=== PATIENT | female | born 1970 | race Caucasian/White ===

== ENCOUNTER 2019-10-22 11:36 | Inpatient (IN) | payer OTHER ==
[~2019-10-22] VITALS: Ht 157.5 cm; Wt 42.2 kg
[2019-10-22] MEDS ORDERED: IV NS 0.9% 1,000 ML BAG IV ONE ×2 (12:30→14:00)
[2019-10-22] MEDS ORDERED: ALBUTEROL FS 2.5 MG/3 ML VIAL.NEB NEB ONE (12:30)
[2019-10-22] MEDS ORDERED: predniSONE 20 MG TABLET ONE (12:49)
[2019-10-22 12:51] LABS: BASOPHILS # (AUTO) 0.1 /CMM (0.0-0.2); BASOPHILS % (AUTO) 0.6 % (0.0-2.0); EOSINOPHILS % (AUTO) 0.6 % (0.0-6.0); HEMATOCRIT 41 % (33-45); HEMOGLOBIN 13.5 g/dL (11.5-14.8); LYMPHOCYTES # (AUTO) 2.7 /CMM (0.8-4.8); LYMPHOCYTES % (AUTO) 30.9 % (20.0-44.0); MEAN CORPUSCULAR HGB CONC 33 g/dl (31.0-36.0); MEAN CORPUSCULAR VOLUME 83 fL (82-100); MONOCYTES # (AUTO) 0.9 /CMM (0.1-1.30); NEUTROPHILS # (AUTO) 5.1 /CMM (1.8-8.9); NEUTROPHILS % (AUTO) 57.9 % (43.0-81.0); PLATELET COUNT (AUTO) 145 /CMM (150-450); RED BLOOD CELL COUNT(AUTO) 4.97 MIL/uL (4.0-5.2); WHITE BLOOD COUNT (AUTO) 8.7 K/uL (4.3-11.0)
[2019-10-22] MEDS ORDERED: ALBUTEROL FS 2.5 MG/3 ML VIAL.NEB ONE (12:52)
[2019-10-22] MEDS ORDERED: predniSONE 50 MG TABLET PO ONE (13:00)
[2019-10-22 13:04] LABS: ALANINE AMINOTRANSFERASE 88 U/L (12-78); ALBUMIN 3.2 g/dL (3.4-5.0); ALKALINE PHOSPHATASE 344 U/L (46-116); ASPARTATE AMINOTRANSFERASE 75 U/L (15-37); BILIRUBIN,DIRECT 0.2 mg/dL (0.0-0.2); BILIRUBIN,TOTAL 0.3 mg/dL (0.2-1.0); TOTAL PROTEIN, SERUM 7.6 g/dL (6.4-8.2)
[2019-10-22 13:22] LABS: CALCIUM, SERUM 9.3 mg/dL (8.5-10.1); POTASSIUM 3.3 mmol/L (3.5-5.1)
[2019-10-22] MEDS ORDERED: HYDR-4384 PO (13:49)
[2019-10-22] MEDS ORDERED: ALBU1.25 NEB (13:49)
[2019-10-22] MEDS ORDERED: IBUP-1957 PO (13:49)
[2019-10-22] MEDS ORDERED: GLIP5TAB13 PO (13:49)
[2019-10-22] MEDS ORDERED: METF-440 PO (13:49)
[2019-10-22] MEDS ORDERED: HUM10VIA3 SQ (13:49)
[2019-10-22 13:51] LABS: APPEARANCE,URINE CLEAR (CLEAR); BILIRUBIN,URINE NEGATIVE (NEGATIVE); BLOOD, URINE NEGATIVE Ery/uL (NEGATIVE); COLOR,URINE YELLOW (YELLOW); KETONES,URINE NEGATIVE (NEGATIVE); LEUKOCYTE ESTERASE ,URINE NEGATIVE (NEGATIVE); NITRITE, URINE NEGATIVE (NEGATIVE); PROTEIN,URINE NEGATIVE (NEGATIVE); UGLUCOSE >=1000 mg/dL (NEGATIVE); UROBILINOGEN,URINE 0.2 EU/dL (0.2)
[2019-10-22] MEDS ORDERED: POTASSIUM CL. PREMIX PERIPHER. 200 ML ONE (13:51)
[2019-10-22 14:13] LABS: RBC,URINE NONE SEEN /HPF (0-2); WBC,URINE NONE SEEN /HPF (0-3)
[2019-10-22] MEDS: POTASSIUM CL. PREMIX PERIPHER. 50 ML IV SCH ×5 (14:13→17:45)
[2019-10-22 14:14] LABS: BACTERIA,URINE None seen /HPF (None Seen); SQUAMOUS EPITHELIAL CELL,UR Many /HPF (None Seen)
[2019-10-22] MEDS ORDERED: ACETAMINOPHEN 325 MG TABLET PO PRN (15:00)
[2019-10-22] MEDS ORDERED: MAGNESIUM HYDROXIDE 30 ML UDC PO PRN (15:00)
[2019-10-22] MEDS ORDERED: HYDROCODONE/APAP 5/325MG 1 EACH TABLET PO PRN (15:00)
[2019-10-22] MEDS ORDERED: INSULIN REGULAR, HUMAN 100 UNIT/ML 3 ML VIAL IV ONE (15:00)
[2019-10-22] MEDS ORDERED: Z GUARD REMEDY 2 OZ OINT TP PRN (15:00)
[2019-10-22] MEDS ORDERED: MAG HYDROX/AL HYDROX/SIMETH 30 ML UDC PO PRN (15:00)
[2019-10-22] MEDS ORDERED: DEXTROSE 50%-WATER 50 ML DISP.SYRIN IV PRN (15:00)
[2019-10-22 16:00] VITALS: BP 133/78
[2019-10-22 17:27] VITALS: BP 133/78
[2019-10-22] MEDS: METFORMIN 500 MG TABLET PO SCH (17:36)
[2019-10-22] MEDS: BLOOD SUGAR DIAGNOSTIC 1 EACH STRIP IN SCH ×2 (17:40→21:42)
[2019-10-22] MEDS: IV NS 0.9% 1,000 ML IV SCH ×2 (17:40→22:16)
[2019-10-22] MEDS: *INSULIN REGULAR(HUMULIN R)HUM 100 UNIT/ML VIAL SQ PRN ×2 (18:52→22:29)
[2019-10-22 20:00] VITALS: BP 170/86
[2019-10-22] MEDS ORDERED: INSULIN GLARGINE, 100 UNIT/ML CARTRIDGE SQ SCH (22:00)
[2019-10-23 04:00] VITALS: BP 155/85
[2019-10-23] MEDS: IV NS 0.9% 1,000 ML IV SCH ×4 (04:13→23:20)
[2019-10-23 06:55] LABS: BASOPHILS % (AUTO) 0.1 % (0.0-2.0); EOSINOPHILS % (AUTO) 0.1 % (0.0-6.0); HEMATOCRIT 34 % (33-45); HEMOGLOBIN 11.5 g/dL (11.5-14.8); LYMPHOCYTES # (AUTO) 3.3 /CMM (0.8-4.8); LYMPHOCYTES % (AUTO) 23.9 % (20.0-44.0); MEAN CORPUSCULAR HGB CONC 34 g/dl (31.0-36.0); MEAN CORPUSCULAR VOLUME 79 fL (82-100); MONOCYTES # (AUTO) 0.8 /CMM (0.1-1.30); MONOCYTES % (AUTO) 5.9 % (2.0-12.0); NEUTROPHILS # (AUTO) 9.8 /CMM (1.8-8.9); PLATELET COUNT (AUTO) 143 /CMM (150-450); RED BLOOD CELL COUNT(AUTO) 4.28 MIL/uL (4.0-5.2)
[2019-10-23 07:34] LABS: CALCIUM, SERUM 8.9 mg/dL (8.5-10.1); CREATININE 0.8 mg/dL (0.6-1.3); MAGNESIUM 1.3 mg/dL (1.8-2.4); PHOSPHORUS 2.1 mg/dL (2.5-4.9); POTASSIUM 4.2 mmol/L (3.5-5.1)
[2019-10-23] MEDS: BLOOD SUGAR DIAGNOSTIC 1 EACH STRIP IN SCH ×4 (07:46→21:53)
[2019-10-23] MEDS: INSULIN REGULAR, HUMAN 100 UNIT/ML 3 ML VIAL SQ PRN ×2 (07:50→16:42)
[2019-10-23 08:00] VITALS: BP 167/98
[2019-10-23] MEDS: ONDANSETRON HCL/PF 4 MG/2 ML VIAL IVP PRN (08:03)
[2019-10-23] MEDS: METFORMIN 500 MG TABLET PO SCH ×2 (08:03→16:46)
[2019-10-23] MEDS: Magnesium 1GM/D5W 100ML PREMIX 100 ML IV SCH ×4 (10:14→13:46)
[2019-10-23] MEDS ORDERED: K PHOS NEUTRAL 250 MG TABLET PO ONE (11:00)
[2019-10-23 16:00] VITALS: BP 162/80
[2019-10-23 20:00] VITALS: BP 142/77
[2019-10-23] MEDS: *INSULIN REGULAR(HUMULIN R)HUM 100 UNIT/ML VIAL SQ PRN (21:58)
[2019-10-23] MEDS: INSULIN GLARGINE, 100 UNIT/ML CARTRIDGE SQ SCH (21:58)
[2019-10-24] MEDS: BLOOD SUGAR DIAGNOSTIC 1 EACH STRIP IN SCH ×4 (06:36→22:01)
[2019-10-24] MEDS: INSULIN REGULAR, HUMAN 100 UNIT/ML 3 ML VIAL SQ PRN ×3 (06:39→18:56)
[2019-10-24] MEDS: IV NS 0.9% 1,000 ML IV SCH (07:00)
[2019-10-24 07:38] LABS: BASOPHILS % (AUTO) 0.4 % (0.0-2.0); EOSINOPHILS % (AUTO) 0.8 % (0.0-6.0); HEMATOCRIT 38 % (33-45); HEMOGLOBIN 12.6 g/dL (11.5-14.8); LYMPHOCYTES # (AUTO) 3.9 /CMM (0.8-4.8); MEAN CORPUSCULAR HGB CONC 33 g/dl (31.0-36.0); MEAN CORPUSCULAR VOLUME 79 fL (82-100); MONOCYTES # (AUTO) 1.2 /CMM (0.1-1.30); MONOCYTES % (AUTO) 8.5 % (2.0-12.0); NEUTROPHILS # (AUTO) 8.4 /CMM (1.8-8.9); NEUTROPHILS % (AUTO) 61.3 % (43.0-81.0); PLATELET COUNT (AUTO) 154 /CMM (150-450); RED BLOOD CELL COUNT(AUTO) 4.79 MIL/uL (4.0-5.2); WHITE BLOOD COUNT (AUTO) 13.6 K/uL (4.3-11.0)
[2019-10-24 08:00] VITALS: BP 143/91
[2019-10-24 08:08] LABS: CALCIUM, SERUM 8.6 mg/dL (8.5-10.1); CREATININE 0.6 mg/dL (0.6-1.3); MAGNESIUM 1.6 mg/dL (1.8-2.4); POTASSIUM 4.4 mmol/L (3.5-5.1)
[2019-10-24] MEDS: METFORMIN 500 MG TABLET PO SCH ×2 (08:12→16:54)
[2019-10-24] MEDS ORDERED: IV NS 0.9% 1,000 ML IV PRN (09:17)
[2019-10-24] MEDS: Magnesium 1GM/D5W 100ML PREMIX 100 ML IV SCH ×2 (11:42→11:52)
[2019-10-24] MEDS: *INSULIN REGULAR(HUMULIN R)HUM 100 UNIT/ML VIAL SQ PRN ×2 (11:44→22:12)
[2019-10-24] MEDS: LISINOPRIL (10MG) 10 MG TABLET PO SCH (11:46)
[2019-10-24] MEDS: Potassium Phosphate meq 11 MEQ in IV D5W 100 ML IV SCH ×2 (12:37→12:38)
[2019-10-24] MEDS: ENSURE ENLIVE 237 ML LIQUID (VANILLA) PO SCH ×2 (13:00→16:54)
[2019-10-24] MEDS: ONDANSETRON HCL/PF 4 MG/2 ML VIAL IVP PRN (14:47)
[2019-10-24 16:00] VITALS: BP 145/68
[2019-10-24 17:55] VITALS: BP 144/71
[2019-10-24 18:31] VITALS: BP 144/71
[2019-10-24 20:33] VITALS: BP 149/80
[2019-10-24] MEDS: INSULIN GLARGINE, 100 UNIT/ML CARTRIDGE SQ SCH (22:13)
[2019-10-25] MEDS: INSULIN REGULAR, HUMAN 100 UNIT/ML 3 ML VIAL SQ PRN ×2 (06:30→17:53)
[2019-10-25 06:36] LABS: BASOPHILS % (AUTO) 0.4 % (0.0-2.0); EOSINOPHILS % (AUTO) 0.7 % (0.0-6.0); HEMATOCRIT 37 % (33-45); HEMOGLOBIN 12.1 g/dL (11.5-14.8); LYMPHOCYTES # (AUTO) 3.3 /CMM (0.8-4.8); MEAN CORPUSCULAR HGB CONC 33 g/dl (31.0-36.0); MEAN CORPUSCULAR VOLUME 80 fL (82-100); MONOCYTES # (AUTO) 1.1 /CMM (0.1-1.30); MONOCYTES % (AUTO) 10.8 % (2.0-12.0); NEUTROPHILS # (AUTO) 5.6 /CMM (1.8-8.9); NEUTROPHILS % (AUTO) 55.1 % (43.0-81.0); PLATELET COUNT (AUTO) 151 /CMM (150-450); RED BLOOD CELL COUNT(AUTO) 4.56 MIL/uL (4.0-5.2); WHITE BLOOD COUNT (AUTO) 10.1 K/uL (4.3-11.0)
[2019-10-25] MEDS: BLOOD SUGAR DIAGNOSTIC 1 EACH STRIP IN SCH ×4 (06:52→21:45)
[2019-10-25 07:10] LABS: CALCIUM, SERUM 8.9 mg/dL (8.5-10.1); CREATININE 0.6 mg/dL (0.6-1.3); MAGNESIUM 1.5 mg/dL (1.8-2.4); PHOSPHORUS 2.9 mg/dL (2.5-4.9); POTASSIUM 3.9 mmol/L (3.5-5.1)
[2019-10-25 08:00] VITALS: BP_SYST 118; BP_SYST 157; BP_DIAS 79; BP_DIAS 88
[2019-10-25] MEDS: Magnesium 1GM/D5W 100ML PREMIX 100 ML IV SCH ×2 (08:02→09:00)
[2019-10-25] MEDS: METFORMIN 500 MG TABLET PO SCH ×2 (08:05→17:52)
[2019-10-25] MEDS: LISINOPRIL (10MG) 10 MG TABLET PO SCH (08:06)
[2019-10-25] MEDS: ENSURE ENLIVE 237 ML LIQUID (VANILLA) PO SCH ×3 (08:12→17:54)
[2019-10-25] MEDS ORDERED: LISI10TA5 PO (11:30)
[2019-10-25] MEDS ORDERED: INSU100V7 SQ (11:30)
[2019-10-25] MEDS ORDERED: INSU100V30 IJ (11:30)
[2019-10-25] MEDS ORDERED: METF-440 PO (11:30)
[2019-10-25 16:00] VITALS: BP 149/77
[2019-10-25 20:00] VITALS: BP 138/72
[2019-10-25] MEDS: INSULIN GLARGINE, 100 UNIT/ML CARTRIDGE SQ SCH (22:00)
[2019-10-25] MEDS ORDERED: OLANZAPINE 5 MG TABLET PO SCH (22:00)
[2019-10-25] MEDS ORDERED: diphenhydrAMINE HCL 50 MG/ML VIAL IV PRN ×2 (22:30)
[2019-10-26 05:39] VITALS: BP 117/63
[2019-10-26] MEDS: BLOOD SUGAR DIAGNOSTIC 1 EACH STRIP IN SCH ×3 (06:46→17:38)
[2019-10-26] MEDS: INSULIN REGULAR, HUMAN 100 UNIT/ML 3 ML VIAL SQ PRN ×2 (06:50→19:34)
[2019-10-26] MEDS: METFORMIN 500 MG TABLET PO SCH ×2 (08:34→17:00)
[2019-10-26] MEDS: ENSURE ENLIVE 237 ML LIQUID (VANILLA) PO SCH ×3 (08:34→17:39)
[2019-10-26] MEDS: LISINOPRIL (10MG) 10 MG TABLET PO SCH (09:00)
[2019-10-26 16:00] VITALS: BP 132/89
[2019-10-27] MEDS ORDERED: OLAN5TAB3 PO (08:02)
[2019-10-27] MEDS ORDERED: INSU100V7 SQ (08:02)
[2019-10-27] MEDS ORDERED: ACET-868 PO (08:02)
[2019-10-27] MEDS ORDERED: INSU100V11 SQ (08:02)
[2019-10-27] MEDS ORDERED: MULT-447 PO (08:02)
[2019-10-27] MEDS ORDERED: LISI10TA5 PO (08:02)
[2019-10-27] MEDS ORDERED: DIPH25CA51 PO (08:02)
[2019-10-27] MEDS ORDERED: ACET-2605 PO ×2 (08:02)
[2019-10-27] MEDS ORDERED: METF-440 PO (08:02)
[2019-10-29] MEDS ORDERED: IPRA0.2S49 NEB (13:43)
== END 2019-10-26 19:22 | DRG 420 ==
LOC: ER 11:40 → ICU 14:45 → TELE1 16:08 → MEDSG1 16:28 → MEDSG2 10-24 17:47
PROVIDERS: ADMIT Internal Medicine; ATTEND Internal Medicine
PROC: 0HBRXZZ Excision of Toe Nail, External Approach (ICD-10-PCS; principal; 2019-10-25)
DX: E11.00 Type 2 diabetes mellitus with hyperosmolarity without nonketotic hyperglycemic-hyperosmolar coma (NKHHC) (principal); G93.41 Metabolic encephalopathy; E43 Unspecified severe protein-calorie malnutrition; F10.10 Alcohol abuse, uncomplicated; E11.65 Type 2 diabetes mellitus with hyperglycemia; B35.1 Tinea unguium; E87.1 Hypo-osmolality and hyponatremia; E86.0 Dehydration; E86.1 Hypovolemia; Z59.0 Homelessness; F31.9 Bipolar disorder, unspecified; Z91.14 Patient's other noncompliance with medication regimen; E87.6 Hypokalemia; R62.7 Adult failure to thrive; Z68.1 Body mass index [BMI] 19.9 or less, adult; J44.9 Chronic obstructive pulmonary disease, unspecified; M62.562 Muscle wasting and atrophy, not elsewhere classified, left lower leg; M62.561 Muscle wasting and atrophy, not elsewhere classified, right lower leg; E88.09 Other disorders of plasma-protein metabolism, not elsewhere classified
CPT/HCPCS: 36415; 70450-TC; 71045-TC; 80048-TC; 80076-TC; 81000-TC; 82947-TC; 82962-TC; 83735-TC; 84100-TC; 84484-TC; 84703-TC; 85025-TC; 87081-TC; 97116-TC; 97530-TC; G0378; J1200; J1815; J2405; J3475; J3480; J3490; J7030; J7060

== ENCOUNTER 2019-10-27 02:16 | Inpatient (IN) | payer OTHER ==
[~2019-10-27] VITALS: Ht 157.5 cm; Wt 52.2 kg
[~2019-10-27 02:16] MED LIST: ALBU1.25 NEB; GLIP5TAB13 PO; HUM10VIA3 SQ; HYDR-4384 PO; IBUP-1957 PO; INSU100V30 IJ; INSU100V7 SQ; LISI10TA5 PO; METF-440 PO
--- NOTE | 2019-10-27 02:27 | NUR ---
JULIOCESAR FROM [facility] C/O HYPERGLYCEMIA. PT A, OX4. NO AMS. FSBS: 455. AWARE. PT WAS PLACED ON A MONITOR. VSS. WILL CONT TO MONITOR
[2019-10-27] MEDS ORDERED: IV NS 0.9% 500 ML BAG IV ONE (02:30)
[2019-10-27 02:54] LABS: APPEARANCE,URINE CLEAR (CLEAR); BILIRUBIN,URINE NEGATIVE (NEGATIVE); BLOOD, URINE NEGATIVE Ery/uL (NEGATIVE); COLOR,URINE YELLOW (YELLOW); KETONES,URINE NEGATIVE (NEGATIVE); LEUKOCYTE ESTERASE ,URINE NEGATIVE (NEGATIVE); NITRITE, URINE NEGATIVE (NEGATIVE); PH,URINE 6.5 (5.0-8.0); PROTEIN,URINE NEGATIVE (NEGATIVE); UGLUCOSE >=1000 mg/dL (NEGATIVE); UROBILINOGEN,URINE 0.2 EU/dL (0.2)
[2019-10-27 02:56] LABS: BASOPHILS % (AUTO) 0.4 % (0.0-2.0); EOSINOPHILS % (AUTO) 0.7 % (0.0-6.0); HEMATOCRIT 35 % (33-45); HEMOGLOBIN 11.6 g/dL (11.5-14.8); LYMPHOCYTES # (AUTO) 2.4 /CMM (0.8-4.8); LYMPHOCYTES % (AUTO) 28.8 % (20.0-44.0); MEAN CORPUSCULAR HGB CONC 33 g/dl (31.0-36.0); MEAN CORPUSCULAR VOLUME 80 fL (82-100); MONOCYTES # (AUTO) 1.3 /CMM (0.1-1.30); MONOCYTES % (AUTO) 15.8 % (2.0-12.0); NEUTROPHILS # (AUTO) 4.5 /CMM (1.8-8.9); NEUTROPHILS % (AUTO) 54.3 % (43.0-81.0); PLATELET COUNT (AUTO) 133 /CMM (150-450); RED BLOOD CELL COUNT(AUTO) 4.35 MIL/uL (4.0-5.2); WHITE BLOOD COUNT (AUTO) 8.3 K/uL (4.3-11.0)
[2019-10-27 03:11] LABS: ALBUMIN 2.6 g/dL (3.4-5.0); BILIRUBIN,DIRECT 0.1 mg/dL (0.0-0.2); BILIRUBIN,TOTAL 0.3 mg/dL (0.2-1.0); CALCIUM, SERUM 9.1 mg/dL (8.5-10.1); CREATININE 1.1 mg/dL (0.6-1.3); POTASSIUM 3.4 mmol/L (3.5-5.1); TOTAL PROTEIN, SERUM 6.4 g/dL (6.4-8.2)
[2019-10-27 03:27] LABS: LYMPHOCYTES % (MANUAL) 23 % (16-48); MONOCYTES % (MANUAL) 15 % (0-11.0); NEUTROPHILS % (MANUAL) 62 (42-76)
--- NOTE | 2019-10-27 04:58 | NUR ---
FSBS:288 MD AWARE
--- NOTE | 2019-10-27 06:49 | NUR ---
BED ASSIGNMENT 209-1
[2019-10-27] MEDS ORDERED: TEMAZEPAM 15 MG CAPSULE PO PRN (07:00)
[2019-10-27] MEDS ORDERED: MAG HYDROX/AL HYDROX/SIMETH 30 ML UDC PO PRN (07:00)
[2019-10-27] MEDS ORDERED: HYDROCODONE/APAP 5/325MG 1 EACH TABLET PO PRN (07:00)
[2019-10-27] MEDS ORDERED: MORPHINE SULFATE INJ 2 MG/ML DISP.SYRIN IV PRN (07:00)
[2019-10-27] MEDS ORDERED: MAGNESIUM HYDROXIDE 30 ML UDC PO PRN (07:00)
[2019-10-27] MEDS ORDERED: ACETAMINOPHEN 325 MG TABLET PO PRN (07:00)
[2019-10-27] MEDS ORDERED: ONDANSETRON HCL/PF 4 MG/2 ML VIAL IVP PRN (07:00)
[2019-10-27] MEDS ORDERED: DEXTROSE 50%-WATER 50 ML DISP.SYRIN IV PRN (07:00)
--- NOTE | 2019-10-27 07:23 | NUR ---
pt was transferred to the floor in stable condition.
--- NOTE | 2019-10-27 07:30 | NUR ---
ADMISSION NOTE PT WAS BROUGHT UP AT THIS TIME IN STABLE CONDITION BREATHING EVEN AND UNLABORED ON RA WITH NO S/S OF ANY DISTRESS, A/O X4 ABLE TO TURN AND REPOSITION SELF BUT STATES THAT SHE IS AMBULATORY WITH ASSIST, IV IS NOTED TO BE PATENT AND INTACT, NOTED TO HAVE SKIN WOUNDS, NPO FOR DIAGNOSIS OF PANCREATITIS, SAFETY PRECAUTIONS IN PLACE, CALL LIGHT IN REACH, WILL MONITOR ACCORDINGLY
[2019-10-27 08:00] VITALS: BP 141/81
[2019-10-27] MEDS ORDERED: ACET-2605 PO ×2 (08:02)
[2019-10-27] MEDS ORDERED: OLAN5TAB3 PO (08:02)
[2019-10-27] MEDS ORDERED: METF-440 PO (08:02)
[2019-10-27] MEDS ORDERED: INSU100V11 SQ (08:02)
[2019-10-27] MEDS ORDERED: INSU100V7 SQ (08:02)
[2019-10-27] MEDS ORDERED: DIPH25CA51 PO (08:02)
[2019-10-27] MEDS ORDERED: ACET-868 PO (08:02)
[2019-10-27] MEDS ORDERED: LISI10TA5 PO (08:02)
[2019-10-27] MEDS ORDERED: MULT-447 PO (08:02)
[2019-10-27] MEDS ORDERED: LORAZEPAM INJ 2 MG/ML VIAL IV PRN (10:00)
--- NOTE | 2019-10-27 10:25 | NUR ---
WOUND CARE CONSULT: PT PRESENTS WITH CIRCULAR SCARS TO LEFT BUTTOCK AND RT 2ND TOE DRY ESCHAR, PRESENT ON ADMISSION. PT CONTINENT AND INDEPENDENT WITH BED MOBILITY AT THIS TIME. RECOMMENDATIONS MADE FOR SKIN PROTECTION. DISCUSSED WITH NURSING STAFF. WILL SEE PRN. MCNEAL IN AGREEMENT WITH PLAN OF CARE. Addendum: 10/27/19 at 1027 by TISHA GRECO WNDNU Amended: Links added.
[2019-10-27] MEDS ORDERED: POTASSIUM CL. PREMIX PERIPHER. 50 ML IV PRN (11:00)
[2019-10-27] MEDS ORDERED: POTASSIUM CL. PREMIX PERIPHER. 50 ML IV SCH (11:09)
[2019-10-27] MEDS: INSULIN REGULAR, HUMAN 100 UNIT/ML 3 ML VIAL SQ PRN ×2 (11:43→17:12)
[2019-10-27] MEDS: BLOOD SUGAR DIAGNOSTIC 1 EACH STRIP IN SCH ×2 (11:46→17:11)
[2019-10-27] MEDS ORDERED: POTASSIUM CHLORIDE 20 MEQ TAB.PRT.SR PO SCH (12:00)
--- NOTE | 2019-10-27 12:00 | NUR ---
RN NOTE 1200 BS NOTED TO BE 437, MESSAGE TO , WILL ADMIN 10 UNITS OF REGULAR INSULIN ORDERED AND AWAIT FOR ANY FURTHER ORDERS
[2019-10-27] MEDS: IV NS 0.9% 1,000 ML IV PRN (15:04)
[2019-10-27 16:00] VITALS: BP 145/75
--- NOTE | 2019-10-27 18:54 | NUR ---
RN CLOSING NOTE PT IN BED AT LOWEST AND LOCKED POSITION WITH SIDE RAILS UP X2, A/O X3 BREATHING EVEN AND UNLABORED ON RA WITH NO S/S OF ANY DISTRESS OR PAIN AT THIS TIME, IV IS PATENT AND INTACT WITH IVF RUNNING, LAST BS WAS NOTED TO BE 362 WITH 10 UNIT GIVEN, ON BEDREST, SAFETY PRECAUTIONS IN PLACE, CALL LIGHT IN REACH, ALL NEEDS ATTENDED TO, WILL ENDORSE TO NIGHT RN FOR NILESH.
[2019-10-27 20:00] VITALS: BP 119/58
--- NOTE | 2019-10-28 | NUR ---
MS RN NOTES BS CHECKED 418. RECHECKED BS 464. 10 UNITS REGULAR INSULIN COVERAGE. PT NON COMPLIANT WITH DIET. JUST HAD SODA AND CHIPS. NOTIFIED AAMIR LEAF FAT SCRAPER VACUUM CLOSING MACHINE OPERATOR FOR EPIC RE. PT'S CONDITION. NO NEW ORDERS AT THIS TIME. WILL CONTINUE TO MONITOR.
[2019-10-28] MEDS: BLOOD SUGAR DIAGNOSTIC 1 EACH STRIP IN SCH ×5 (00:21→21:57)
[2019-10-28] MEDS: INSULIN REGULAR, HUMAN 100 UNIT/ML 3 ML VIAL SQ PRN ×4 (00:23→18:23)
[2019-10-28] MEDS: IV NS 0.9% 1,000 ML IV PRN ×4 (00:52→22:18)
--- NOTE | 2019-10-28 06:00 | NUR ---
MS RN NOTES BS CHECKED 592. RECHECKED BS 548. 10 UNITS REGULAR INSULIN COVERAGE. PT NON COMPLIANT WITH DIET. JUST HAD SODA. NOTIFIED AAMIR NICU RN DIRECTOR OF DEVELOPMENT AND MARKETING FOR EPIC RE. PT'S CONDITION. NO NEW ORDERS AT THIS TIME. WILL CONTINUE TO MONITOR.
--- NOTE | 2019-10-28 06:34 | NUR ---
MS RN NOTES AWAKE & RESPONSIVE. NOT IN ANY DISTRESS. NO SOB NOTED. DENIES ANY PAIN OR DISCOMFORT AT THIS TIME. WITH IVF INFUSING WELL. AM CARE DONE. MONITORED ACCORDINGLY. CALL LIGHT WITHIN REACH. BED IN LOWEST POSITION. SR UP X 3 WITH BED ALARM ON FOR SAFETY. WILL ENDORSE TO NEXT SHIFT.
--- NOTE | 2019-10-28 07:15 | NUR ---
RN OPENING NOTES RECEIVED PATIENT IN BED ASLEEP, AROUSES EASILY TO VERBAL AND TACTILE STIMULI. NOT IN ACUTE DISTRESS. NO SOB. DENIED ANY PAIN OR DISCOMFORT AT THIS TIME. IV ACCESS INTACT AND PATENT. NO NEEDS AT THIS TIME PER PATIENT. KEPT PATIENT SAFE AND COMFORTABLE. BED IN LOW/LOCKED POSITION, SIDRAILS UPX2, CALL LIGHT IN REACH. WILL CONTINUE TO MONITOR ACCORDINGLY.
[2019-10-28 08:00] VITALS: BP 170/76
[2019-10-28 09:00] VITALS: BP 140/78
[2019-10-28] MEDS ORDERED: DEXTROSE 50%-WATER 50 ML DISP.SYRIN IV PRN (11:00)
--- NOTE | 2019-10-28 13:22 | NUR ---
RN NOTES ACCUCHECK READING HI BUT NO NUMBERS. CHECKED TWICE STILL HIGH. NOTIFIED NESTOR CABALLERO DNP. STAT BLOOD GLUCOSE ORDERED.
[2019-10-28 14:16] LABS: BASOPHILS % (AUTO) 0.5 % (0.0-2.0); EOSINOPHILS % (AUTO) 0.9 % (0.0-6.0); HEMATOCRIT 34 % (33-45); HEMOGLOBIN 10.9 g/dL (11.5-14.8); LYMPHOCYTES # (AUTO) 1.7 /CMM (0.8-4.8); LYMPHOCYTES % (AUTO) 28.4 % (20.0-44.0); MEAN CORPUSCULAR HGB CONC 32 g/dl (31.0-36.0); MEAN CORPUSCULAR VOLUME 83 fL (82-100); MONOCYTES # (AUTO) 0.8 /CMM (0.1-1.30); MONOCYTES % (AUTO) 13.3 % (2.0-12.0); NEUTROPHILS # (AUTO) 3.4 /CMM (1.8-8.9); NEUTROPHILS % (AUTO) 56.9 % (43.0-81.0); PLATELET COUNT (AUTO) 113 /CMM (150-450); RED BLOOD CELL COUNT(AUTO) 4.07 MIL/uL (4.0-5.2); WHITE BLOOD COUNT (AUTO) 5.9 K/uL (4.3-11.0)
[2019-10-28 14:44] LABS: CREATININE 0.8 mg/dL (0.6-1.3); MAGNESIUM 1.4 mg/dL (1.8-2.4); PHOSPHORUS 2.5 mg/dL (2.5-4.9); POTASSIUM 3.7 mmol/L (3.5-5.1)
--- NOTE | 2019-10-28 14:57 | NUR ---
rn notes BS 815, notified Marvin Sarah DNP. will administer aggressive sliding scale
--- NOTE | 2019-10-28 15:22 | NUR ---
rn notes: 20 units regular insulin given for BS 815 coverage. Marvin Sarah DNP aware.
[2019-10-28 16:00] VITALS: BP 144/82
--- NOTE | 2019-10-28 18:23 | NUR ---
rn notes: BS 587. 20 units regular insulin given as ordered. Marvin Sarah DNP aware.
--- NOTE | 2019-10-28 19:30 | NUR ---
RN CLOSING NOTES PATIENT IN STABLE CONDITION. ALL NEEDS ATTENDED AND PROVIDED. ALL DUE MEDS GIVEN ORDERED. WOUND CARE RENDERED. KEPT PATIENT SAFE AND COMFORTABLE. BED IN LOW,LOCKED POSITION. SIDERAILS UPX2, SEMIFOWLER POSITION. CALL LIGHT IN REACH. ENDORSED ACCORDINGLY
--- NOTE | 2019-10-28 19:40 | NUR ---
RN OPENING NOTES RECEIVED REPORT FROM DAYSHIFT MYCHAL METZGER. FOUND Pt AWAKE, RESTING IN BED. NO S/S OF ACUTE DISTRESS OR SOB NOTED. Pt IS A/OX3, VERBAL AND ABLE TO MAKE NEEDS KNOWN. IV ACCESS ON RWRIST#20G, IVF NS @250ML/HR. SAFETY MEASURES IN PLACE. BED LOW, LOCKED, HOB ELEVATED, SIDE RAILS UP, CALL LIGHT AND BEDSIDE TABLE WITHIN REACH. BED ALARM ON. WILL CONTINUE TO MONITOR Pt's CONDITION AND SAFETY THROUGHOUT THE NIGHT.
[2019-10-28 20:00] VITALS: BP 170/78
[2019-10-28] MEDS: INSULIN GLARGINE, 100 UNIT/ML CARTRIDGE SQ SCH (22:24)
[2019-10-28] MEDS: *INSULIN REGULAR(HUMULIN R)HUM 100 UNIT/ML VIAL SQ PRN (22:25)
--- NOTE | 2019-10-28 22:30 | NUR ---
RN NOTES HS ACCUCHECK BG 299. ADMINISTERED SCHEDULED 16UN OF LANTUS VIA RT DELTOID 7 AND ADMINISTERED ADDITIONAL 6UN OF REGULAR INSULIN PER SLIDING SCALE.
[2019-10-29] MEDS: BLOOD SUGAR DIAGNOSTIC 1 EACH STRIP IN SCH ×4 (06:11→21:25)
[2019-10-29] MEDS: INSULIN REGULAR, HUMAN 100 UNIT/ML 3 ML VIAL SQ PRN ×3 (06:14→17:42)
--- NOTE | 2019-10-29 06:15 | NUR ---
RN NOTES AC BG 344. ADMINISTERED 16UN OF INSULIN PER SLIDING SCALE. PROVIDED SNACKS AT BEDSIDE.
[2019-10-29 06:16] LABS: BASOPHILS # (AUTO) 0.1 /CMM (0.0-0.2); BASOPHILS % (AUTO) 0.5 % (0.0-2.0); EOSINOPHILS % (AUTO) 0.9 % (0.0-6.0); HEMATOCRIT 34 % (33-45); HEMOGLOBIN 11.2 g/dL (11.5-14.8); LYMPHOCYTES # (AUTO) 2.8 /CMM (0.8-4.8); LYMPHOCYTES % (AUTO) 26.8 % (20.0-44.0); MEAN CORPUSCULAR HGB CONC 34 g/dl (31.0-36.0); MEAN CORPUSCULAR VOLUME 80 fL (82-100); MONOCYTES # (AUTO) 1.3 /CMM (0.1-1.30); MONOCYTES % (AUTO) 12.8 % (2.0-12.0); NEUTROPHILS # (AUTO) 6.2 /CMM (1.8-8.9); PLATELET COUNT (AUTO) 128 /CMM (150-450); RED BLOOD CELL COUNT(AUTO) 4.19 MIL/uL (4.0-5.2); WHITE BLOOD COUNT (AUTO) 10.5 K/uL (4.3-11.0)
[2019-10-29 06:36] LABS: CALCIUM, SERUM 8.4 mg/dL (8.5-10.1); CREATININE 0.6 mg/dL (0.6-1.3); MAGNESIUM 1.4 mg/dL (1.8-2.4); PHOSPHORUS 2.5 mg/dL (2.5-4.9); POTASSIUM 4.3 mmol/L (3.5-5.1)
--- NOTE | 2019-10-29 07:25 | NUR ---
M/S RN NOTES PATIENT AWAKE IN BED, NO RESPIRATORY DISTRESS, NO C/O PAIN AT THIS TIME. PATIENT'S SKIN WARM TO TOUCH. IV NS INFUSING AT 250ML/HR ON THE RT WRIST #20G, INTACT AND PATENT. PATIENT'S NEEDS ATTENDED, BED ON LOWEST LOCKED POSITION, CALL LIGHT WITHIN REACH. WILL CONTINUE TO MONITOR.
--- NOTE | 2019-10-29 07:55 | NUR ---
RN CLOSING NOTES NO SIGNIFICANT CHANGES IN Pt's CONDITION. NO S/S OF ACUTE DISTRESS OR SOB NOTED DURING THE NIGHT. ALL NEEDS MET AND ATTENDED TO. SAFETY MEASURES IN PLACE. ENDORSED TO DAYSHIFT RN FOR Pt's NILESH.
[2019-10-29 08:00] VITALS: BP 161/83
[2019-10-29] MEDS ORDERED: INSULIN GLARGINE, 100 UNIT/ML CARTRIDGE SQ SCH (09:00)
[2019-10-29] MEDS: Magnesium 1GM/D5W 100ML PREMIX 100 ML IV SCH ×4 (10:11→13:44)
--- NOTE | 2019-10-29 12:14 | NUR ---
M/S RN NOTES PATIENT'S BLOOD SUGAR CHECKED 485, THEN RECHECKED AND AT 517, GAVE PATIENT 20 UNITS OF REGULAR INSULIN PER SLIDING SCALE AND NOTIFIED MD.
[2019-10-29] MEDS ORDERED: IPRA0.2S49 NEB (13:43)
[2019-10-29 16:00] VITALS: BP 136/67
--- NOTE | 2019-10-29 18:44 | NUR ---
M/S RN NOTES SPOKE TO CM AND PER CM CYNDEE, NURSING STRINGED INSTRUMENT ASSEMBLER FROM [facility] SAID IT WAS OKAY FOR PATIENT TO BE TRANSFERRED TO THEIR FACILITY IF BS IS >200 AT TIME OF DISCHARGE.
--- NOTE | 2019-10-29 19:58 | NUR ---
M/S RN NOTES CALLED [facility] AND SPOKE TO YAHAIRA. REPORTED THAT PATIENT'S BS AT 338 THAT WAS TAKEN AT 1935. ASKED IF PATIENT CAN BE TRANSFERRED TO THEIR FACILITY AND PER [facility] NURSING AIR POLLUTION INSPECTOR THEY CAN NOT ACCEPT THE PATIENT, PATIENT NEEDS TO HAVE LESS THAN 200 BLOOD SUGAR. WILL ENDORSE TO NIGHT NURSE.
[2019-10-29 20:00] VITALS: BP 145/69
--- NOTE | 2019-10-29 20:10 | NUR ---
RN OPENING NOTES RECEIVED REPORT FROM [facility]. FOUND Pt AWAKE, RESTING IN BED. NO S/S OF ACUTE DISTRESS OR SOB NOTED. Pt IS AGITATED AND ANGRY BECAUSE SHE WANTS TO EAT MORE, BUT DUE TO HER UNCONTROLLED HIGH BLOOD SUGAR, SHE IS ON A RESTRICTED DIET AND IS NOT ALLOWED DOUBLE PORTIONS OR EXTRA SNACKS AT THIS TIME. Pt IS A/OX3, VERBAL, ABLE TO MAKE NEEDS KNOWN. IV ACCESS ON RWRIST #22G, IVF NS RUNNING AT THIS TIME, INFUSING WELL. SAFETY MEASURES IN PLACE. BED LOW, LOCKED, HOB ELEVATED, SIDE RAILS UP, CALL LIGHT AND BEDSIDE TABLE WITHIN REACH. BED ALARM ON. WILL CONTINUE TO MONITOR Pt's CONDITION AND SAFETY THROUGHOUT THE NIGHT UNTIL DISCHARGED.
[2019-10-29 20:13] VITALS: BP 145/69
--- NOTE | 2019-10-29 20:26 | NUR ---
RN MARGE SPOKE WITH MYCHAL SYED AT [facility]. ASKED IF THEY ARE OK WITH ACCEPTING A LATE DISCHARGE, AND SHE SAID YES, LONG THE Pt's BG IS BELOW 200. INFORMED MACHINE LEATHER TRIMMER HOSPITALIST AAMIR OF THE SITUATION. WILL KEEP HIM POSTED AND WILL KEEP MONITORING Pt's BG FOR NOW. Addendum: 10/29/19 at 2047 by ROBSON AZUL RN AMBULANCE PICKUP FOR TRANSPORT HAS BEEN CHANGED TO STANDBY AT THIS TIME.
--- NOTE | 2019-10-29 21:41 | NUR ---
RN NOTES HS BG 189. CALLED [facility] TO SCHEDULE FOR CERTIFIED CORPORATE TRAVEL EXECUTIVE. EARLIEST CERTIFIED CORPORATE TRAVEL EXECUTIVE IS SCHEDULED @2340. CALLED MYCHAL SYED AT [facility] TO INFORM HER OF THE NEW BG READING AND THE SCHEDULED CERTIFIED CORPORATE TRAVEL EXECUTIVE @ 2340. RN IS AWARE, AND SAID OK FOR DISCHARGE TRANSFER.
[2019-10-29] MEDS: INSULIN GLARGINE, 100 UNIT/ML CARTRIDGE SQ SCH (21:46)
[2019-10-29] MEDS: *INSULIN REGULAR(HUMULIN R)HUM 100 UNIT/ML VIAL SQ PRN (21:47)
--- NOTE | 2019-10-29 23:05 | NUR ---
RN NOTES Pt WAS CRYING AND SCREAMING ASKING FOR THE IV TO BE REMOVED FROM HER ARM, STATING THAT IT HURTS TOO MUCH AND THAT SHE CANNOT TAKE THE PAIN ANYLONGER. Pt IS NOT HOOKED UP TO ANY IV FLUIDS AT THE TIME, BUT WAS STILL C/O PAIN. WHEN ASKED IF SHE WANTED ANY PAIN MEDS SHE SAID NO, JUST THAT SHE WANTS THE IV REMOVED FROM HER ARM NOW. EXPLAINED THAT PER HOSPITAL POLICY THAT WE REQUIRE ALL Pt's TO HAVE THE IV UNTIL AMBULANCE HAS ARRIVED TO THE FLOOR, EVEN IF Pt IS DISCHARGED AND IS WAITING FOR PICKUP. Pt STATED THAT SHE DOES NOT CARE AND WANTS IT REMOVED IMMEDIATELY. EXPLAINED AGAIN THE RISKS AND BENEFITS, AND Pt STILL DEMANDED FOR THE IV TO BE REMOVED, AND WAS BECOMING MORE AGITATED AND ANGRY. REMOVED IV ACCESS ON RWRIST. SECURED WITH GAUZE AND TAPE. NO S/S OF BLEEDING NOTED. WILL CONTINUE TO MONITOR Pt.
--- NOTE | 2019-10-29 23:38 | NUR ---
RN NOTES Pt WAS STATING THAT SHE WAS STARTING TO FEEL DIZZY AND LIGHTHEADED AND SLEEPY AND FEELS THAT HER BLOOD SUGAR IS DROPPING TOO LOW. RECHECKED BG, READING WAS 101. PROVIDED 1 CRANBERRY JUICE, 1 SALTINE CRACKER, & 1 WYATT CRACKER AT BEDSIDE. INFORMED Pt THAT IS ALL SHE CAN HAVE FOR NOW UNTIL SHE GOES BACK TO HER FACILITY.
--- NOTE | 2019-10-30 00:31 | NUR ---
RN NOTES [facility] ARRIVED TO THE FLOOR TO TRANSFER Pt TO [facility]. Pt WAS AWAKE & ALERT IN BED. NO S/S OF ACUTE DISTRESS OR SOB NOTED. ALL NEEDS MET AND ATTENDED TO. DRESSING CHANGES & DIAPER CHANGE PROVIDED PRIOR TO DISCHARGE. ID BAND REMOVED. VS STABLE. CALLED [facility] TO INFORM THE RN THAT Pt HAS BEEN PICKED UP AND HAS ALREADY LEFT THE BUILDING & IS BEING TRANSPORTED NOW TO THEIR FACILITY. INFORMED RN THAT Pt's BG DROPPED TO 101 @2330 & Pt WAS C/O BEING DIZZY & LIGHTHEADED, SO WAS GIVEN CRANBERRY JUICE & SALTINE CRACKER & WYATT CRACKER TO HELP WITH HER LOW BG. Pt WAS SAFELY TRANSFERRED OUT OF THE FLOOR.
== END 2019-10-30 00:30 | DRG 282 ==
LOC: ER 02:17 → MEDSG2 06:52
PROVIDERS: ADMIT Hospitalist; ATTEND Registered Nurse
DX: K85.90 Acute pancreatitis without necrosis or infection, unspecified (principal); E11.00 Type 2 diabetes mellitus with hyperosmolarity without nonketotic hyperglycemic-hyperosmolar coma (NKHHC); E43 Unspecified severe protein-calorie malnutrition; R64 Cachexia; E86.0 Dehydration; K86.1 Other chronic pancreatitis; F25.9 Schizoaffective disorder, unspecified; E88.09 Other disorders of plasma-protein metabolism, not elsewhere classified; E87.1 Hypo-osmolality and hyponatremia; E87.6 Hypokalemia; I10 Essential (primary) hypertension; J44.9 Chronic obstructive pulmonary disease, unspecified; Z91.19 Patient's noncompliance with other medical treatment and regimen; Z90.49 Acquired absence of other specified parts of digestive tract; R74.0 Nonspecific elevation of levels of transaminase and lactic acid dehydrogenase [LDH]; M62.50 Muscle wasting and atrophy, not elsewhere classified, unspecified site; Z68.21 Body mass index [BMI] 21.0-21.9, adult; Z79.84 Long term (current) use of oral hypoglycemic drugs; Z79.4 Long term (current) use of insulin; S31.829A Unspecified open wound of left buttock, initial encounter; S31.819A Unspecified open wound of right buttock, initial encounter; X58.XXXA Exposure to other specified factors, initial encounter; Y93.9 Activity, unspecified; Y92.129 Unspecified place in nursing home as the place of occurrence of the external cause
CPT/HCPCS: 36415; 76700-TC; 80048-TC; 80061-TC; 80076-TC; 81000-TC; 82947-TC; 82962-TC; 83690-TC; 83735-TC; 84100-TC; 84703-TC; 85025-TC; 87081-TC; A6253; A6403; G0378; J1815; J2060; J3475; J7030